=== PATIENT | male | born 1985 | race Caucasian/White ===

== ENCOUNTER 2019-08-10 15:47 | Emergency (ER) | payer SELFPAY ==
[~2019-08-10] VITALS: Ht 170.2 cm; Wt 66.2 kg
[2019-08-10 15:49] VITALS: Ht 170.2 cm; Wt 66.2 kg
[2019-08-10 18:28] VITALS: BP 137/79
== END 2019-08-10 17:00 | disposition home or self-care (01) ==
LOC: ED 15:47
DX: B02.9 Zoster without complications (principal)